=== PATIENT | female | born 1950 | race Caucasian/White ===

== ENCOUNTER 2024-06-28 16:36 | Emergency (ER) | payer OTHER | END 2024-06-28 19:34 | disposition home or self-care (01) | LOC: CSHERS 16:36 | DX: S52.591A Other fractures of lower end of right radius, initial encounter for closed fracture (principal); I10 Essential (primary) hypertension; W18.30XA Fall on same level, unspecified, initial encounter | CPT/HCPCS: 29125; 99283 ==